=== PATIENT | female | born 1985 | race Caucasian/White ===

== ENCOUNTER 2024-09-09 23:15 | Inpatient (IN) | payer OTHER, SELFPAY ==
[2024-09-09] VITALS (8 sets, daily range): BP systolic 153–191; BP diastolic 93–126; BMI 25.6
--- NOTE | 2024-09-09 19:19 | ED.GENMED ---
History of Present Illness
General
Chief Complaint: Seizure
Source: patient and ambulance crew
Exam Limitations: none
Time Seen by Provider: 09/09/24 19:17
Nursing documentation reviewed up to this point in time: agreed with
History of Present Illness
History of Present Illness:
39-year-old female presents emergency department complaining of a seizure. EMS was called by family. She has a history of seizures when she has a lupus flare. She arrives with a left gaze deviation. She was postictal for EMS. She is not on any
antiepileptic therapy. She is followed at [facility] for her lupus and seizures.
Past History
Past History
ED Past Medical History: Seizures and Other (Lupus)
Social History
Tobacco: Non-smoker
Alcohol: None
Drug: None
Living: with family
Review of Systems
Review of Systems
Allergies reviewed?: Yes
All Other Systems: Not applicable
Constitutional: Reports no symptoms
EENT: Reports no symptoms
Respiratory: Reports no symptoms
Cardiac: Reports no symptoms
ABD/GI: Reports no symptoms
: Reports no symptoms
Musculoskeletal: Reports no symptoms
Skin: Reports no symptoms
Neurological: Reports headache and other (seizure)
Endocrine: Reports no symptoms
Hematologic/Lymphatic: Reports no symptoms
Psychiatric: Reports no symptoms
Phy Exam
Physical Exam
Physical Exam:
Physical Exam
General: no apparent distress, not acutely ill
Neck: supple. no meningeal signs. normal posterior pharynx
Heart: s1/s2 regular rate and rhythm, no murmur. equal radial
pulses.
HEENT: Pupils equal round reactive to light, leftward gaze, resolving, scleral edema
Lungs: no acute respiratory distress. clear bilaterally
Abdomen: normal bowel sounds. not tender. no CVAT
Neuro: alert and oriented. no focal neurological deficits cranial nerves II through XII intact
Skin: no rash
Psychiatric: well kept. interactive and cooperative
Extremities: no edema. no calf tenderness. negative homans. good distal pulses
Course
Orders/Labs/Results
Orders:
Orders
09/09/24 19:17
Cardiac Monitoring- Treatment ONCE
IV Insert/Care/Rem.- Treatment PRN
09/09/24 19:18
Electrocardiogram (*1) Urgent
Reason for Study: Other
Other Reason for Exam: seizure
CT Head W/o Iv Contrast Urgent
Comment:
Reason For Exam: seizure, lupus flare
EKG- Treatment ONCE
09/09/24 19:19
Test Result ONCE
09/09/24 19:23
MANINDER, IgG Reflex to HEp-2 [S] Urgent
C-Reactive Protein Urgent
Comment: ADDON
Complete Blood Count/With Diff Urgent
Comprehensive Metabolic Panel Urgent
Erythrocyte Sed Rate Urgent
Comment: ADDON
HCG, Serum Qualitative Screen Urgent
Magnesium Urgent
Comment: ADDON
Serum Osmolality Urgent
Comment: ADDON
09/09/24 20:00
Ondansetron Injectable [Zofran] 4 mg .ROUTE .STK-MED ONE
09/09/24 20:01
Ondansetron Injectable [Zofran] 4 mg IV NOW STA
09/09/24 20:03
Add On- LAB Urgent
Tests Added?: magnesium, serum osmolality
09/09/24 20:15
Potassium Chloride [KCl] 40 meq 0.9% Sodium Chloride 250 ml [Nss] 250 ml IV NOW
09/09/24 20:46
Add On- LAB Urgent
Tests Added?: crp, esr
09/09/24 20:47
MRI Brain [MR Brain W/o & With Contrast] Urgent
Comment:
Reason For Exam: seizure vs cva, lupus
OK for patient to be off Cardiac Monitoring for MRI: No
Recent pill cam endoscopy?: No
09/09/24 21:00
3% Sodium Chloride 250 ml [Sodium Chloride 3%] 250 ml IV ONCE
09/09/24 21:11
Admit/Transfer Patient As Directed
Co-Sign Provider:
Level of Care: Inpatient admission
Assign to:: ICU
Physician / Group: [email or web address]
Diagnosis: see below
Reason for Hospitalization: Provoked Sz disorder provoked by symptomatic hyponatremia vs Lupus flare
Post ictal state
Underlying DISTRIBUTION SUPERVISOR lupus
Expected length of stay greater than two midnights?: Yes
ELOS- Estimated Length of Stay in days: 5
I certify the patient meets the requirements for IP care: Yes
09/09/24 21:13
Code Status As Directed
Resuscitation Status: Full Code
09/09/24 21:56
Levetiracetam Injectable [Keppra] 1,000 mg IV NOW STA
09/09/24 22:00
Flush (0.9% Sodium Chloride) [Flush (Nss)] See Dose Instructions IV PER PROTOCOL
09/09/24 22:05
Lorazepam [Ativan] 2 mg IV NOW STA
09/09/24 23:47
Osmolality, Random Urine Urgent
Date Specimen was Collected: 09/09/24
Time Specimen was Collected: 23:44
Urinalysis Reflex To Culture Urgent
Date Specimen was Collected: 09/09/24
Time Specimen was Collected: 19:22
Urine Microscopic Reflex Cult Urgent
Urine Sodium Urgent
Date Specimen was Collected: 09/09/24
Time Specimen was Collected: 23:44
Abnormal Lab Results
09/09/24
19:23
WBC 13.0 H 10^3/uL
(4.8-10.8)
RBC 3.66 L 10^6/uL
(4.20-5.40)
Hgb 10.6 L g/dL
(12.0-16.0)
Hct 28.3 L %
(37.0-47.0)
MCV 77.3 L fL
(81.0-99.0)
MCHC 37.5 H g/dL
(33.0-37.0)
Abs Immat Gran (auto) 0.1 H 10^3/uL
(0-0.05)
Absolute Neuts (auto) 11.8 H 10^3/uL
(1.4-6.5)
Absolute Lymphs (auto) 0.5 L 10^3/uL
(1.2-3.4)
Neutrophils % 90.8 H %
(42.2-75.2)
Lymphocytes % 4.1 L %
(20.5-51.1)
ESR 29 H mm/hour
(0-20)
Sodium 119 L* mmol/L
(135-145)
Potassium 3.0 L mmol/L
(3.5-5.1)
Chloride 93 L mmol/L
(98-107)
BUN 93 H mg/dl
(7-17)
Creatinine 1.5 H mg/dL
(0.6-1.0)
Glucose 129 H mg/dl
(70-99)
Calcium 7.7 L mg/dl
(8.4-10.2)
Total Protein 4.0 L g/dl
(6.3-8.2)
Albumin 1.6 L g/dl
(3.5-5.0)
09/09/24 19:23
09/09/24 19:23
Vital Signs
Initial and Last Documented VS:
Initial Vital Signs
Temp Pulse Resp BP Pulse Ox
97.9 F 70 20 177/93 99
09/09/24 19:17 09/09/24 19:17 09/09/24 19:17 09/09/24 19:17 09/09/24 19:17
Last Documented Vital Signs
Temp Pulse Resp BP Pulse Ox
97.9 F 84 21 144/105 94
09/09/24 19:17 09/10/24 00:26 09/10/24 00:26 09/10/24 00:26 09/10/24 00:26
MDM/Problems Addressed
Differential Diagnosis Includes:
Seizures, CVA, vasculitis, cerebritis
MDM/Problems Addressed:
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 Patient had a seizure upon arrival. She also had a seizure while at MRI. These did resolve spontaneously. Her CT scan showed multiple lesions, necessitating an MRI. MRI showed multiple lesions
suspicious for cerebral vasculitis. Discussed with Dr. Carrasquillo, recommended MRI. She also recommended transfer to a center with inpatient rheumatology. Patient's family requested [facility], whom I spoke to and never received an
accepting physician. I spoke with [facility] ICU, who referred me to neuro ICU. Dr. Mcintosh accepts patient. They requested to wait on methylpredisolone until they evaluated. Pt labs show hypokalemia, hyponatremia. Pt awake and oriented
at time of transfer.
Chronic conditions affecting care: Other (Lupus)
Acute Exacerbation and/or Progression of Chronic Illness: Other (Lupus)
*EKG
Interpreted by ED Provider?: Yes
EKG Intrepretation Date: 09/09/24
EKG Intrepretation Time: 19:23
Interpretation: abnormal
Comparison EKG: no comparison EKG present
Heart Rate: 71
Rate: normal
Rhythm: PVC's
[place]: normal axis
Interval: normal interval
QRS Pattern: normal QRS
Ischemia: no ischemia
*Personnel Administrator Interpretation
Rate: normal
Interpretation: normal
Heart Rate: 70
Rhythm: sinus
*Critical Care Note
Total Time (30-74mins, 75-104mins- exclusive of procedures): 80
comment:
Critical care statement: A total of 80 minutes of critical care time was provided for this patient. This includes management of unstable vital signs, evaluation of the patient at bedside, reviewing the patient's pertinent medical records, discussion
with consultants, review of old EKGs and review of pertinent medical records. This time with separate from time utilized to perform the aforementioned documented procedures
Patient Management
Social determinants of health affecting care: Living situation and Strong social support
Discussion with other providers: Hospitalist and Generator Rebuilder (neuro ICU fellow)
Escalation/DeEscalation of care consider admission/obs:
transfer to [facility] indicated for higher level of care
ED Attending Note
-
Portions of this chart may have been created with voice recognition software.� Occasional wrong word or��sound alike� substitutions may have occurred due to the inherent limitations of voice recognition software.
Discharge Plan
Departure
Patient Disposition: Acute Care Hospital
Date of Disposition: 09/10/24
Time of Disposition: 00:01
Admit to: ICU
Patient with high blood pressure during this ER visit?: Yes
Condition: Serious
Discharge Problem:
Lupus cerebritis, Seizure, Acute hyponatremia, Acute hypokalemia
Hospital Transfer
Other hospital: [facility]
I certify that the patient requires transfer: Yes
Discussed case with accepting physician: Arnaldo
Reason for transfer: higher level of care, availability of service and specialties available
Interventions
Interventions:
*Risk Screen - Suicide Last Done: 09/09/24 23:21
*General Assessment Last Done: 09/09/24 19:17
*Neglect/Abuse Screening Last Done: 09/09/24 23:21
ED- Fall Risk Assessment Last Done: 09/09/24 19:13
*ED COVID-19 Vaccine History Last Done: 09/09/24 23:21
ED- Cardiac Assessment Last Done: 09/09/24 19:13
ED- Neurological Assessment Last Done: 09/09/24 19:13
ED- Pulmonary Assessment Last Done: 09/09/24 19:13
[2024-09-09 19:34] LABS: % Basophils 0.1 % (0-2); % Immature Granulocytes 0.4 % (0-0.5); % Lymphocytes 4.1 % (20.5-51.1); % Monocytes 4.6 % (1.7-9.3); % Neutrophils 90.8 % (42.2-75.2); Absolute Immature Granulocytes 0.1 10^3/uL (0-0.05); Absolute Lymphocytes 0.5 10^3/uL (1.2-3.4); Absolute Monocytes 0.6 10^3/uL (0.1-0.6); Absolute Neutrophils 11.8 10^3/uL (1.4-6.5); Hematocrit 28.3 % (37.0-47.0); Hemoglobin 10.6 g/dL (12.0-16.0); Mean Corp Hgb Conc. 37.5 g/dL (33.0-37.0); Mean Corpuscular Volume 77.3 fL (81.0-99.0); Mean Platelet Volume 9.6 fL (7.4-10.4); Nucleated Red Blood Cells % 0 %; Platelet Count 261 10^3/uL (130-400); Red Blood Cell Count 3.66 10^6/uL (4.20-5.40); Red Cell Dist. Width 13.6 % (11.5-14.5)
[2024-09-09 19:44] LABS: HCG, Serum Qualitative Screen Negative
[2024-09-09 19:50] LABS: ALT (SGPT) 13 U/L (0-35); AST (SGOT) 26 U/L (14-36); Albumin 1.6 g/dl (3.5-5.0); Alkaline Phosphatase 49 U/L (38-126); Blood Urea Nitrogen 93 mg/dl (7-17); Calcium 7.7 mg/dl (8.4-10.2); Carbon Dioxide 22 mmol/L (22-30); Chloride 93 mmol/L (98-107); Glucose 129 mg/dl (70-99); Sodium 119 mmol/L (135-145); Total Bilirubin 0.6 mg/dl (0.2-1.3); eGFR 45.74
[2024-09-09 20:18] LABS: Magnesium 2.1 mg/dl (1.6-2.3)
[2024-09-09 20:25] LABS: Osmolality Serum 292 mOsm/kg (275-300)
[2024-09-09] MEDS: SODIUM CHLORIDE 3% 250 IV (20:27)
[2024-09-09] MEDS: ZOFRAN 4 MG IV (20:34)
[2024-09-09] MEDS: KCL 270 MEQ IV (20:34)
--- NOTE | 2024-09-09 21:02 | HPS.HSE ---
Family Physician
-
Family Physician: Fausto Negron
Chief Complaint
-
seizures
History of Present Illness
I could not get any information from the patient as post ictal
Information gathered by chart review and speaking with the ER staff.
HPI
39F HX Lupus, Sz disorder BiB EMS to ER;
- family called EMS due to Sz
- HZ Sz when lupus flare
- Not on any anti epileptic Meds
She is followed at [facility] for her lupus and seizures.
Medical History
Past Medical History
Past Medical History: Reports Other (seizures , BRIM STITCHER lupus )
Past Surgical History: Reports Other
Social History
Tobacco: Non-smoker
Alcohol: None
Drug: None
Living: With Family
Family History
Family History: Not pertinent
Allergies / Home Medications
Allergies reflects when Allergies were last updated in [employer]
Home Medications with original date entered in [employer]
Allergy/Medication List:
Allergies
Allergy/AdvReac Type Severity Reaction Status Date / Time
No Known Allergies Allergy Unverified 09/09/24 19:17
If medication reconciliation has not been performed, why?: Medication List N/A
Review of Systems
-
Constitutional: Reports No Symptoms
EENT: Reports No Symptoms
Respiratory: Reports No Symptoms
Cardiac: Reports No Symptoms
Abdomen/GI: Reports No Symptoms
: Reports No Symptoms
Musculoskeletal: Reports No Symptoms
Skin: Reports No Symptoms
Neurological: Reports See HPI
Endocrine: Reports No Symptoms
Hematologic/Lymphatic: Reports No Symptoms
Psych: Reports No Symptoms
Physical Exam
Vital Signs
Vital Signs
Temp Pulse Resp BP Pulse Ox
97.9 F 70 20 177/93 99
09/09/24 19:17 09/09/24 19:17 09/09/24 19:17 09/09/24 19:17 09/09/24 19:17
Physical Exam
General: Other (awake , followed commands )
HEENT: NormoCephalic, Moist mucous membranes, Atraumatic and Other (puffy face )
Respiratory: Clear
Cardiac: S1/S2 and Regular Rhythm; No Murmur or Rub
GI: Soft, Non Tender, Non Distended and Normal Bowel Sounds; No Organomegaly
Rectal: Deferred by Provider
Musculoskeletal: No Clubbing, No Cyanosis and No Edema
Skin: No Rash
Neuro: Nonfocal/grossly intact
Laboratory Results
-
09/09/24 19:23
09/09/24 19:23
Laboratory Results
Total Bilirubin 0.6 mg/dl (0.2-1.3) 09/09/24 19:23
AST 26 U/L (14-36) 09/09/24 19:23
ALT 13 U/L (0-35) 09/09/24 19:23
Alkaline Phosphatase 49 U/L (38-126) 09/09/24 19:23
Data Reviewed
-
CT Scan: Report Reviewed by me
MRI: Other (pending MRI brain )
Lab Data: Labs Reviewed by me
Impression/Plan
-
Laboratory Tests
Vital Signs
Temp Pulse Resp BP Pulse Ox
97.9 F 70 20 177/93 99
09/09/24 19:17 09/09/24 19:17 09/09/24 19:17 09/09/24 19:17 09/09/24 19:17
09/09/24
19:23
WBC 13.0 H
Hgb 10.6 L
Plt Count 261
Sodium 119 L*
Potassium 3.0 L
Chloride 93 L
Carbon Dioxide 22
BUN 93 H
Creatinine 1.5 H
eGFR 45.74
Glucose 129 H
Serum Osmolality 292
Calcium 7.7 L
C-Reactive Protein Pending
HCT Head W/o Iv Contrast
- Multiple regions of decreased density are seen within the brain as described.
- Many of these regions have associated volume loss and near CSF density, suggestive of areas of old infarction.
- There is a rounded region of decreased density involving the right anterior thalamus, genu of the right internal capsule, and medial right lentiform nucleus, and appears to have mild associated mass effect, and is suspicious for an area of acute
to subacute involvement.
- Main differential considerations of acute to subacute infarction versus focal edema from cerebral vasculitis.
In the white matter of the left frontal lobe, just superior and anterior to the frontal horn of the left lateral ventricle (centrum semiovale), focal area of decreased density, most likely old, although could conceivably be acute to subacute.
NO PRIOR hospitalist admission:
ASSESSMENT & PLAN
Pending Rx reconciliation
Provoked Sz disorder provoked by symptomatic hyponatremia vs Lupus flare
Post ictal state
Underlying BRIM STITCHER lupus or MS
Abnormal HCT; report as above
Prior HX Sz disorder once in [place]
- Per ER d/w Neuro , hold off on AEDs and further w/u as below suggested by Neuro;
Pending brain Brain MRI
pending MANINDER. CPK, Mg
- Neuro consulted
Profound hyponatremia presumed symptomatic
Presumed PATRICIO
Severe azotemia
HX Lupus nephritis
- Hypokalemia ; s/p IV Rydal KCL 40
- pending Sr Osm, Ur Osm , Ur Na
- s/p 3 % hypertonic saline per Renal
- f/u BMP in AM
- Renal consulted
BRIM STITCHER lupus vs MS
- pending Rx reconciliation
Per ER attd: attempting TF to tertiary center ( [facility])
If bed is not available , will be DH
DVT Px: SCD
Full code
ICU
[2024-09-09 21:14] LABS: C-Reactive Protein < 5.00 mg/L (0.0-10.00)
[2024-09-09 21:32] LABS: Erythrocyte Sed Rate 29 mm/hour (0-20)
--- NOTE | 2024-09-09 21:42 | PHANOTE ---
Med Rec Tech 09/09/24: patient's family did not know medication dosages, attempted to call patient's pharmacy, unable to get intouch with pharmacy staff. No records in [facility] or [facility] to base medication list on.
[2024-09-09] MEDS: ATIVAN 2 MG IV (22:47)
[2024-09-09] MEDS: KEPPRA 1000 MG IV (22:48)
[2024-09-09] MEDS: FLUSH (NSS) 1 FLUSH IV (23:57)
[2024-09-10 00:01] LABS: Urine Albumin 4+ (Neg - Trace); Urine Bilirubin Negative (Negative); Urine Character Slightly Cloudy (Clear); Urine Color Yellow; Urine Glucose Negative (Negative); Urine Ketone Negative (Negative); Urine Leukocyte Negative (Negative); Urine Nitrite Negative (Negative); Urine Occult Blood 4+ (Negative); Urine Specific Gravity 1.015 (<1.030); Urine Urobilinogen Negative (Neg - 1+)
[2024-09-10 00:26] VITALS: BP 144/105
[2024-09-10 00:37] LABS: Osmolality Urine 347 mOsm/kg (300-900)
[2024-09-10 00:43] LABS: Urine Sodium 15 mmol/L (30-90)
[2024-09-10 00:56] LABS: Urine Amorphous Seen; Urine Bacteria Moderate (Negative); Urine Granular Cast >15 /LPF (0); Urine Red Blood Cell 70-80 /HPF (0-2); Urine White Cell 21-25 /HPF (0-5)
[2024-09-12 06:17] LABS: ANA, IgG Reflex to HEp-2 Detected (None Detected)
== END 2024-09-10 01:02 | disposition short-term general hospital (02) | DRG 546 ==
LOC: ED 23:15
PROVIDERS: ADMITTING PHYSICIAN Internal Medicine; EMERGENCY PHYSICIAN Emergency Medicine; FAMILY PHYSICIAN Family Medicine
DX: M32.19 Other organ or system involvement in systemic lupus erythematosus (principal); E87.1 Hypo-osmolality and hyponatremia; G40.89 Other seizures; N17.9 Acute kidney failure, unspecified; E87.6 Hypokalemia; I49.3 Ventricular premature depolarization; R79.89 Other specified abnormal findings of blood chemistry
CPT/HCPCS: 70450; 70553; 80053; 81003; 81015; 83735; 83930; 83935; 84300; 84703; 85025; 85652; 86038; 86140; 87086; 93005; 96374; 99291; 99292